=== PATIENT | female | born 1960 | race Caucasian/White ===

== ENCOUNTER → 2018-10-24 | Outpatient (CLI) | payer BC, OTHER ==
[2018-10-24 08:47] LABS: CREATININE 0.8 mg/dL (0.6-1.0)
== END ==
LOC: CAT 07:39
PROVIDERS: Nurse Practitioner
DX: K76.0 Fatty (change of) liver, not elsewhere classified (principal); K76.9 Liver disease, unspecified; M47.815 Spondylosis without myelopathy or radiculopathy, thoracolumbar region; Z90.49 Acquired absence of other specified parts of digestive tract; Z88.0 Allergy status to penicillin; Z88.8 Allergy status to other drugs, medicaments and biological substances; Z88.2 Allergy status to sulfonamides

== ENCOUNTER → 2019-09-22 | Outpatient (CLI) | payer BC, OTHER | LOC: LAB 08:58 | PROVIDERS: ATTEND Nurse Practitioner | DX: R50.9 Fever, unspecified (principal); R05 Cough; R53.83 Other fatigue; Z20.828 Contact with and (suspected) exposure to other viral communicable diseases ==

== ENCOUNTER → 2020-10-08 | Outpatient (CLI) | payer BC, OTHER | LOC: BC 09:05 | PROVIDERS: ATTEND Nurse Practitioner | DX: Z12.31 Encounter for screening mammogram for malignant neoplasm of breast (principal); R06.02 Shortness of breath ==

== ENCOUNTER → 2020-11-01 | Outpatient (CLI) | payer BC, OTHER ==
[2020-11-01 09:49] LABS: CREATININE 0.9 mg/dL (0.6-1.0)
== END ==
LOC: CAT 07:41
PROVIDERS: ATTEND Nurse Practitioner
DX: K76.0 Fatty (change of) liver, not elsewhere classified (principal); J98.11 Atelectasis; K76.89 Other specified diseases of liver; I25.10 Atherosclerotic heart disease of native coronary artery without angina pectoris; I51.7 Cardiomegaly; K46.9 Unspecified abdominal hernia without obstruction or gangrene; Z90.49 Acquired absence of other specified parts of digestive tract